=== PATIENT | female | born 1990 | race Caucasian/White ===

== ENCOUNTER 2017-10-14 15:04 | Inpatient (IN) | payer MEDICAID ==
[~2017-10-14 15:04] MED LIST: OXYTOCIN 30 UNITS/LR 500 ML BAG IV
[2017-10-14] MEDS ORDERED: MISOPROSTOL 200 MCG TAB PR ×2 (17:00→22:30)
[2017-10-14] MEDS ORDERED: METHYLERGONOVINE 0.2 MG INJ IM ×2 (17:00→22:30)
[2017-10-14] MEDS ORDERED: OXYTOCIN 30 UNITS/LR 500 ML IV ×4 (17:00→22:30)
[2017-10-14] MEDS ORDERED: CEFAZOLIN 2 GM/50 ML (PMX) 50 ML IV (17:00)
[2017-10-14] MEDS ORDERED: CARBOPROST 250 MCG INJ IM ×2 (17:00→22:30)
[2017-10-14 17:33] LABS: ADD MAN DIFF? NO
[2017-10-14 17:35] LABS: BASOPHILS % 0.2 % (0.0-2.0); EOSINOPHILS % 0.3 % (0.0-7.0); HEMATOCRIT 41.1 % (37.0-47.0); HEMOGLOBIN 14.2 g/dl (12.0-16.0); LYMPHOCYTES # 2.4 10^3/ul (0.8-2.9); LYMPHOCYTES % 18.1 % (15.0-51.0); MEAN CORPUSCULAR HEMOGLOBIN 30.9 pg (29.0-33.0); MEAN CORPUSCULAR HGB CONC 34.5 g/dl (32.0-37.0); MEAN CORPUSCULAR VOLUME 89.5 fl (82.0-101.0); MEAN PLATELET VOLUME 10.4 fl (7.4-10.4); MONOCYTES % 7.5 % (0.0-11.0); NEUTROPHIL # 9.6 10^3/ul (1.6-7.5); NEUTROPHILS % 73.5 % (39.0-77.0); PLATELET COUNT 226 10^3/UL (140-415); RED BLOOD COUNT 4.59 10^6/ul (4.20-5.40); RED CELL DISTRIBUTION WIDTH 13.8 % (11.5-14.5)
[2017-10-14] MEDS: LACTATED RINGER'S 1,000 ML IV ×2 (17:37→17:51)
[2017-10-14 17:53] LABS: INR 0.93; PARTIAL THROMBOPLASTIN TIME 29.2 Sec (25.0-35.0); PROTIME 12.5 Sec (11.9-14.9)
[2017-10-14] MEDS ORDERED: DEXAMETHASONE 4 MG/ML 1 ML INJ (17:53)
[2017-10-14] MEDS ORDERED: PHENYLephrine (100 MCG/ML) 5ML SYG (17:53)
[2017-10-14] MEDS ORDERED: morphine SULFATE/PF (10 MG/10 ML) INJ (17:53)
[2017-10-14] MEDS ORDERED: OXYTOCIN 10 UNIT INJ (17:53)
[2017-10-14] MEDS ORDERED: METOCLOPRAMIDE 10 MG INJ (17:53)
[2017-10-14] MEDS ORDERED: KETOROLAC 30 MG INJ (17:53)
[2017-10-14 18:30] LABS: HEPATITIS B SURFACE ANTIGEN NEGATIVE (NEGATIVE)
[2017-10-14] MEDS: ONDANSETRON 4 MG INJ IV (18:31)
[2017-10-14] MEDS: CITRIC ACID/SODIUM CITRATE 15 ML CUP PO (18:31)
[2017-10-14] MEDS ORDERED: HYDROmorphONE (0.2 MG/ML) 10ML SYG IV ×3 (19:30)
[2017-10-14] MEDS ORDERED: HYDROCODONE/APAP (5/325) TAB PO (19:30)
[2017-10-14] MEDS ORDERED: morphine 2 MG INJ IV ×2 (19:30)
[2017-10-14] MEDS ORDERED: KETOROLAC 30 MG INJ IV (19:30)
[2017-10-14] MEDS ORDERED: METOCLOPRAMIDE 10 MG INJ IV (19:30)
[2017-10-14] MEDS ORDERED: ACETAMINOPHEN 500 MG TAB PO (19:30)
[2017-10-14] MEDS ORDERED: ONDANSETRON 4 MG INJ IV (19:30)
[2017-10-14] MEDS ORDERED: MEPERIDINE 25 MG INJ IV (19:30)
[2017-10-14] MEDS ORDERED: DIPHENHYDRAMINE 50 MG INJ IV ×2 (19:30)
[2017-10-14] MEDS ORDERED: HYDROmorphONE 0.5 MG/0.5 ML SYG IV ×2 (19:30)
[2017-10-14] MEDS ORDERED: FENTAnyl 50 MCG/ML VIAL IV ×3 (19:30)
[2017-10-14] MEDS ORDERED: OXYCODONE/ACETAMINOPHEN (5/325) TAB PO (19:30)
[2017-10-14] MEDS ORDERED: EPHEDrine SULFATE 50 MG/5 ML SYG IV (19:30)
[2017-10-14] MEDS ORDERED: ALBUMIN HUMAN 5% 250 ML IV (19:30)
[2017-10-14] MEDS ORDERED: NALBUPHINE HCL (10 MG/1 ML) INJ IV (19:30)
[2017-10-14 22:11] LABS: RAPID PLASMA REAGIN NONREACTIVE (NR)
[2017-10-14] MEDS: OXYTOCIN 30 UNITS/LR 500 ML IV (23:23)
[2017-10-15] MEDS: CEFAZOLIN 1 GM/50 ML (PMX) 50 ML IVPB (04:05)
[2017-10-15 08:23] LABS: ADD MAN DIFF? NO
[2017-10-15 08:32] LABS: BASOPHILS % 0.1 % (0.0-2.0); EOSINOPHILS % 0.1 % (0.0-7.0); HEMATOCRIT 31.4 % (37.0-47.0); LYMPHOCYTES # 1.9 10^3/ul (0.8-2.9); LYMPHOCYTES % 11.7 % (15.0-51.0); MEAN CORPUSCULAR HEMOGLOBIN 31.6 pg (29.0-33.0); MEAN CORPUSCULAR VOLUME 90.2 fl (82.0-101.0); MEAN PLATELET VOLUME 10.4 fl (7.4-10.4); MONOCYTE # 1.3 10^3/ul (0.3-0.9); MONOCYTES % 7.8 % (0.0-11.0); NEUTROPHIL # 12.8 10^3/ul (1.6-7.5); NEUTROPHILS % 79.9 % (39.0-77.0); PLATELET COUNT 190 10^3/UL (140-415); RED BLOOD COUNT 3.48 10^6/ul (4.20-5.40); RED CELL DISTRIBUTION WIDTH 13.8 % (11.5-14.5)
[2017-10-15] MEDS: SENNA/DOCUSATE NA (8.6MG/50MG) TAB PO ×2 (09:30→21:21)
[2017-10-15] MEDS: OXYTOCIN 30 UNITS/LR 500 ML IV ×2 (09:34→15:00)
[2017-10-15] MEDS: KETOROLAC 30 MG INJ IV (18:01)
[2017-10-15] MEDS ORDERED: HYDROCODONE/APAP (5/325) TAB PO ×2 (19:30)
[2017-10-15] MEDS ORDERED: OXYCODONE/ACETAMINOPHEN (5/325) TAB PO ×2 (19:30)
[2017-10-16] MEDS: IBUPROFEN 600 MG TAB PO ×5 (00:22→23:31)
[2017-10-16] MEDS: SENNA/DOCUSATE NA (8.6MG/50MG) TAB PO ×2 (10:10→20:22)
[2017-10-16] MEDS: LANOLIN 7 GM TUBE TOP (16:35)
[2017-10-16] MEDS: NA PHOSPHATE/BIPHOS 133 ML ENEMA PR (17:28)
[2017-10-17] MEDS: IBUPROFEN 600 MG TAB PO ×2 (05:36→11:44)
[2017-10-17] MEDS: DIPHTH/TET/ACEL PERTUSS (ADULT) 0.5 ML VIAL IM* (09:49)
[2017-10-17] MEDS: SENNA/DOCUSATE NA (8.6MG/50MG) TAB PO (09:49)
== END 2017-10-17 12:35 | disposition home or self-care (01) | DRG 766 ==
LOC: OBT 15:04 → L-D 15:08 → OBT 17:20 → L-D 17:21 → PP1 23:07
PROVIDERS: Obstetrics & Gynecology
PROC: 10D00Z1 Extraction of Products of Conception, Low, Open Approach (ICD-10-PCS; principal; 2017-10-14 20:00)
PROC: 4A1HXCZ Monitoring of Products of Conception, Cardiac Rate, External Approach (ICD-10-PCS; 2017-10-14 20:00)
DX: O32.1XX0 Maternal care for breech presentation, not applicable or unspecified (principal); Z37.0 Single live birth; Z3A.39 39 weeks gestation of pregnancy
CPT/HCPCS: 76818; 85025; 85610; 85730; 86592; 86850; 86900; 86901; 87340; 99464